=== PATIENT | female | born 1995 | race African-American/Black ===

== ENCOUNTER 2023-09-22 08:51 | Emergency (ER) | payer OTHER ==
[~2023-09-22] VITALS: Ht 154.9 cm; Wt 49.9 kg
[~2023-09-22 08:51] MED LIST: PREDNISONE20 MG PO
[2023-09-22] MEDS: ACETAMINOPHEN 325 MG TAB PO ONE (10:25)
[2023-09-22] MEDS ORDERED: IBUPROFEN 600 MG TAB ONE (10:25)
[2023-09-22] MEDS: IBUPROFEN 600 MG TAB PO STA (10:25)
[2023-09-22] MEDS ORDERED: ACETAMINOPHEN 325 MG TAB ONE (10:26)
[2023-09-22 10:39] LABS: INFLUENZAE A&B ANTIGEN (RAPID) NEGATIVE (NEGATIVE)
[2023-09-22 10:40] LABS: RESPIRATORY SYNC. VIRUS NEGATIVE (NEGATIVE); STREPTOCOCCUS GRP A ANTIGEN NEGATIVE (NEGATIVE)
[2023-09-22] MEDS ORDERED: VENTOLIN HFA18 GM INH (11:18)
[2023-09-22] MEDS ORDERED: PREDNISONE20 MG PO (11:18)
[2023-09-22] MEDS ORDERED: ONDANSETRON ODT4 MG PO (11:18)
[2023-09-22 11:59] VITALS: BP 99/62; PULSE 74; RESP 18; TEMP 99; O2SAT 99
== END 2023-09-22 12:02 | disposition home or self-care (01) ==
LOC: ER 09:26
DX: R50.9 Fever, unspecified (principal); J20.8 Acute bronchitis due to other specified organisms; B34.9 Viral infection, unspecified; R05.9 Cough, unspecified; R11.0 Nausea
CPT/HCPCS: 71045; 81025; 83518; 87070; 87400; 87420; 99283; U0002